=== PATIENT | male | born 1980 | race Caucasian/White ===

== ENCOUNTER 2025-03-09 12:21 | Emergency (ER) | payer OTHER ==
[~2025-03-09] VITALS: Ht 172.7 cm; Wt 91.6 kg
[2025-03-09] MEDS ORDERED: OLANZAPINE 5 MG TABLET ONE (13:37)
[2025-03-09 13:41] LABS: PLATELET COUNT (AUTO) 198 K/uL (150-450); RED BLOOD CELL COUNT(AUTO) 4.55 MIL/uL (4.5-6.0); RED CELL DISTRIBUTION WIDTH 16.6 % (11.5-15.0); WHITE BLOOD COUNT (AUTO) 4.8 K/uL (4.3-11.0)
[2025-03-09] MEDS: OLANZAPINE 5 MG TABLET PO ONE (13:41)
[2025-03-09 13:52] LABS: CALCIUM, SERUM 9.0 mg/dL (8.5-10.1); CREATININE 0.9 mg/dL (0.6-1.3); SODIUM SERUM 141 mmol/L (136-145); UREA NITROGEN, BLOOD 9 mg/dL (7-18)
[2025-03-09 13:54] LABS: ASPARTATE AMINOTRANSFERASE 24 U/L (15-37); TOTAL PROTEIN, SERUM 6.4 g/dL (6.4-8.2)
[2025-03-09 14:41] LABS: ALCOHOL, BLOOD < 3 mg/dL (0-10)
[2025-03-09 14:53] VITALS: BP 124/81; TEMP 97.9; O2SAT 98
== END 2025-03-09 14:53 | disposition home or self-care (01) ==
LOC: ER 12:32
DX: F20.9 Schizophrenia, unspecified (principal); I10 Essential (primary) hypertension
CPT/HCPCS: 36415; 80048-TC; 80076-TC; 85025-TC; G0480